=== PATIENT | female | born 1940 | race Caucasian/White ===

== ENCOUNTER 2018-04-22 21:06 | Emergency (ER) | payer OTHER ==
--- NOTE | 2018-04-22 21:52 | ED Physician Chart ---
ED Chief Complaint/HPI - Patient Information Date Seen:: 04/22/18 Time Seen:: 21:30 Chief Complaint:: confusion and slurred speech History of Present Illness:: Neighbor called 911 because patient seemed to be confused and had slurred speech. Patient's blood pressure by the paramedics was 214 systolic. Granddaughter arrived at 1950 and patient still had slurred speech. Granddaughter is unsure if patient was confused. Patient denies chest pain, shortness of breath, focal neurological deficit. Patient is ambidextrous but writes with the right hand. Allergies:: Allergies Allergy/AdvReac Type Severity Reaction Status Date / Time Penicillins [PCN] Allergy Verified 04/22/18 21:18 Vitals:: Vital Signs - 8 hr 04/22/18 21:19 Temp 97.6 F HR 83 RR 17 BP 170/106 O2 Sat % 93 Historian:: Patient, Family Member Review:: Nurse's Note Reviewed ED Review of Systems - Review of Systems General/Constitutional: No fever, No chills Skin: No skin lesions Head: No headache Eyes: No loss of vision ENT: No earache Neck: No neck pain Cardio Vascular: No chest pain, No palpitations GI: No nausea, No vomiting, No diarrhea G/U: No dysuria Musculoskeletal: No bone or joint pain Endocrine: No polyuria, No polydipsia Psychiatric: No prior psych history Hematopoietic: No bruising Allergic/Immuno: No urticaria Neurological: No focal symptoms, Confusion, Other (. Speech) ED Past Medical History - Past Medical History Past Medical History: HTN, Thyroid disorder, Other (hypothyroidism) Family History: Other (son has a history congestive heart failure) Social History: Smoker, No Alcohol, Other (patient has smoked one pack of cigarettes a day for 60 years) Surgical History: Cholecystectomy, other (bladder carcinoma) Psychiatricy History: None Medication: Reviewed Family Medical History - Family Member Son Living Status: Still Living ED Physical Exam - Physical Examination General/Constitutional: Awake, Well-developed, well-nourished, Alert, No distress, GCS 15, Non-toxic appearing, Ambulatory Head: Atraumatic Eyes: Lids, conjuctiva normal, PERRL, EOMI Skin: Nl inspection, No rash, No skin lesions, No ecchymosis, Well hydrated, No lymphadenopathy ENMT: External ears, nose nl, Nasal exam nl Other ENMT comments:: Full upper and lower dentures Neck: Nontender, No JVD, No nuchal rigidity, No bruit, No mass Respiratory: Nl effort/Exclusion Other Respiratory comments:: 2.5/4 rales both bases and right mid-lung field Cardio Vascular: RRR, No murmur, gallop, rubs, NL S1 S2 Other Cardio Vascular comments:: Regular rhythm with some irregular beats GI: No tenderness/rebounding/guarding, No organomegaly, No hernia, Normal BS's, Nondistended, No mass/bruits, No McBurney tenderness : No CVA tenderness Extremities: No tenderness or effusion, Full ROM, normal strength in all extremities, No edema, Normal digits & nails Neuro/Psych: Alert/oriented Other Neuro/Psych comments:: No facial asymmetry; slightly decreased left hand grasp Misc: Normal back, No paraspinal tenderness ED Labs/Radiology/EKG Results - Radiology Results Results: CT scan showed extensive acute or subacute bilateral periventricular infarcts and a left occipital infarct; no bleed and no shift. - EKG Interpretations Rate & Rhythm: normal sinus rhythm with a rate of 83 [place]: normal Comments:: 1 PVC; low voltage ED Assessment - Assessment General Assessment: I strongly urged patient to be admitted to the hospital where she could have a full workup which would include an echocardiogram and carotid flow study and receive a neurology consultation. However patient refuses to be admitted to the hospital. Patient was informed that she had had strokes recently. Patient still refused to be admitted to the hospital. I will give the patient 2 baby aspirin now and instructed the family to make sure patient takes 1 baby aspirin every morning. Patient to see her primary care doctor for further workup. A a desk of the CAT scan the head and 2 copies of the EKG will be sent with the family. ED Septic Shock - . Is Septic Shock (SBP<90, OR Lactate>4 mmol\L) present?: No - <6hrs of presentation: Vital Signs: Vital Signs - 8 hr 04/22/18 21:19 Temp 97.6 F HR 83 RR 17 BP 170/106 O2 Sat % 93 ED Reassessment (Disposition) - Reassessment Reassessment Condition:: Unchanged - Diagnosis Diagnosis:: Periventricular and left occipital infarcts - Aftercare/Follow up Instructions Aftercare/Follow-Up Instructions:: Counseled pt regarding lab results/diagnosis & need follow up, Counseled pt & family regarding lab results/diagnosis & need follow up - Patient Disposition Discharge/Transfer:: Against Medical Advice Condition at Disposition:: Stable, Unchanged
[2018-04-22] MEDS ORDERED: Aspirin 81mg Chewable Tab PO STA (22:35)
[2018-04-22] MEDS ORDERED: Aspirin 81mg Chewable Tab ONE (22:36)
--- NOTE | 2018-04-23 08:00 | Diagnostic Imaging Report ---
Head CT without intravenous contrast Indication: Slurred speech Comparison: None Technique: Axial images were obtained from the vertex to the skull base without IV contrast. Coronal reconstructions were made. Total DLP: 620, [id number] FINDINGS: Images of the brain obtained without contrast demonstrate no evidence of an acute hemorrhage. Diffuse white matter disease is seen with areas of encephalomalacia along the bilateral parietal regions. The ventricles and basal cisterns are patent. No mass effect or midline shift. Atherosclerosis is noted. No evidence of a skull fracture or focal soft tissue swelling. The visualized paranasal sinuses are clear. IMPRESSION: No evidence of acute intracranial hemorrhage. 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 Diffuse white matter disease is noted which is nonspecific and may be due to chronic microvessel ischemia. If there is continued concern for acute ischemic process, MRI may be obtained for further assessment. Atherosclerotic vascular disease.
== END 2018-04-22 23:00 | disposition left against medical advice (07) ==
LOC: ER 21:06
DX: I63.9 Cerebral infarction, unspecified (principal); I10 Essential (primary) hypertension; E07.9 Disorder of thyroid, unspecified; F17.210 Nicotine dependence, cigarettes, uncomplicated; Z90.49 Acquired absence of other specified parts of digestive tract; Z88.0 Allergy status to penicillin
CPT/HCPCS: 70450-TC; 93005; Z7502; Z7610